=== PATIENT | female | born 1935 | race Caucasian/White ===

== ENCOUNTER 2016-06-10 13:20 | Inpatient (IN) | payer OTHER, MEDICARE ==
[~2016-06-10] VITALS: Ht 147.3 cm; Wt 43.1 kg
[~2016-06-10 13:20] MED LIST: ARICEPT10 M1 PO; BENICAR20 M1 PO; DONEPEZIL HYDROC5 MG PO; LEVOTHYROXINE75 MCG PO; LIPITOR10 M1 PO; NAMENDA XR28 M1 PO
--- NOTE | 2016-06-10 14:08 | ED INFLUENZA/URI COMPLAINT ---
History of Present Illness General Chief Complaint: Fever Stated Complaint: FEVER Source: patient, family, old records Exam Limitations: no limitations Allergies Coded Allergies: strawberry (HIVES 06/10/16) Uncoded Allergies: CHOCOLATE (UNKNOWN 06/10/16) Reconcile Medications Atorvastatin Calcium (Lipitor) 10 MG TABLET 1 TAB PO DAILY CHOLESTEROL ( Reported) Donepezil HCl (Aricept) 10 MG TABLET 1 TAB PO DAILY DEMENTIA (Reported) Levothyroxine Sodium 75 MCG TABLET 1 TAB PO DAILY AC THYROID (Reported) Memantine HCl (Namenda XR) 28 MG CAP.SPR.24 1 CAP PO DAILY DEMENTIA (Reported ) Olmesartan Medoxomil (Benicar) 20 MG TABLET 1 TAB PO DAILY HTN (Reported) Triage Note: BIBA FROM HOME TUESDAY NOT EATING NORMALLY TUESDAY, FEVER 102.5 TUESDAY, FEVER 101 TODAY, FEVER 102 NOT EATING, SLEEPING MORE THAN NORMAL, COUGH STARTED YESTERDAY, NON PRODUCTIVE Triage Nurses Notes Reviewed? yes Onset: Abrupt Duration: week(s): (1), constant Timing: recent history Severity: moderate Severity Numbers: 7 Prior Episodes/Possible Cause: occassional episodes No Modifying Factors: none Associated Symptoms: cough, fever/chills HPI: 80-year-old female presents to emergency room with her daughter for evaluation complaining of fevers as high as 102.5 for the past 4 days generalized malaise, and poor appetite associated with a nonproductive cough since yesterday. The patient denies any sick contacts recent travel. No shortness of breath no chest pain abdominal pain nausea vomiting or diarrhea. She denies any urinary complaints or rashes to her skin there are no modifying factors or associated symptoms otherwise she does not smoke. She did not receive a flu vaccination this year. Last dose of Tylenol was just prior to arrival for her fever. She has not sought care for the symptoms until today. (VIDHI BRIDGES) Vital Signs & Intake/Output Vital Signs & Intake/Output Vital Signs Date Time Temp Pulse Resp B/P Pulse O2 O2 Flow FiO2 Ox Delivery Rate 06/10 1629 103.0 06/10 1629 103.0 06/10 1534 103.0 98 18 132/82 95 Nasal 2.0L Cannula 06/10 1342 100.5 92 20 118/81 90 Past History Medical History Any Pertinent Medical History? see below for history Neurological: Alzheimer's disease EENT: NONE Cardiovascular: hypertension Respiratory: NONE Gastrointestinal: NONE Hepatic: NONE Renal: NONE Musculoskeletal: NONE Psychiatric: NONE Endocrine: hyperthyroidism Blood Disorders: NONE Cancer(s): NONE PSYCHIATRIC LPN/Reproductive: NONE Surgical History Surgical History: non-contributory Psychosocial History Services at Home Nursing What is your primary language Serbian Family History Family History, If Any: Relation not specified for: *No pertinent family history Hx Contributory? No (VIDHI BRIDGES) Review of Systems Review of Systems Constitutional: Reports: see HPI. All Other Systems: Reviewed and Negative Comments Review of systems: See HPI, All other systems negative. Constitutional, no chills fever, no malaise HEENT: No visual changes no sore throat no congestion Cardiovascular: No chest pain , no palpitation Skin, no rashes, no change in skin Respiratory: No dyspnea cough no sputum GI: No nausea no vomiting, no diarrhea : No dysuria No hematuria, no frequency, no discharge Muscle skeletal: No joint pain, no joint swelling, no back pain, Neurologic: No numbness, no headache Psych: No stress Heme/endocrine: No bruising no bleeding Immunology: No lymphadenopathy (VIDHI BRIDGES) Physical Exam Physical Exam General Appearance: well developed/nourished, alert, awake Ears, Nose, Throat: moist mucous membrane, hearing grossly normal Comments: Well-developed well-nourished person in no acute distress HEENT: Normal EENT exam; PERRL, EOMI. HEAD is atraumatic. moist mucous membranes. Neck: Supple, normal range of motion Back: Nontender, no CVA tenderness. Full range of motion Cardiovascular: Regular rate and rhythms no murmurs rubs Respiratory: No respiratory distress. Patient speaking in full complete sentences. Breath sounds clear to auscultation bilaterally: NO W/R/R Abdomen: Soft, nontender nondistended, no appreciable organomegaly. Normal bowel sounds. No rebound/guarding, No appreciable enlargement of the abdominal aorta, No ascites. Extremity: No edema, full range of motion of extremities Neuro: Alert oriented x3, motor sensory normal, There were no obvious focal neurologic abnormalities. Skin: No appreciable rash on exposed skin, skin is warm and dry. Psych: Mood and affect is normal, memory and judgment is normal. Core Measures Severe Sepsis Present: No Septic Shock Present: No (VIDHI BRIDGES) Progress Differential Diagnosis: influenza, otitis, pneumonia, pharyngitis, sinusitis, PNA, BRONCHITIS Diagnostic Imaging: Viewed by Me: Radiology Read. Discussed w/RAD: Radiology Read. CXR Impression: no acute abnormality Initial ED EKG: normal sinus at 90, no acute ST segment changes normal axis Prior EKG: unchanged (10/2014) (VIDHI BRIDGES) Plan of Care: Orders Procedure Date/time Status Heart Healthy Diet 06/11 B Active Admit to inpatient 06/10 1830 Active BLOOD CULTURE 06/10 1755 Active Patient Data 06/10 1723 Active RAPID VIRAL INFLUENZA A 06/10 1405 Complete BLOOD CULTURE 06/10 1405 Active VIRAL CULTURE 06/10 1405 Active XRY-PORTABLE CHEST XRAY 06/10 1357 Active Saline Lock 06/10 1357 Active Pathway - chart 06/10 1357 Active Vital Signs 06/10 1357 Active Telemetry/[employer] Specials 06/10 1357 Active Intake & Output 06/10 1357 Active BLOOD CULTURE 06/10 1357 Active TROPONIN LEVEL 06/10 1357 Complete MAGNESIUM 06/10 1357 Complete LACTIC ACID 06/10 1357 Complete COMPREHENSIVE METABOLIC PANEL 06/10 1357 Complete CBC WITHOUT DIFFERENTIAL 06/10 1357 Complete EKG 06/10 1357 Active Current Medications Sig/Lizzie Start time Last Medication Dose Stop Time Status Admin Atorvastatin Calcium 10 MG DAILY 06/11 1000 UNVr (Lipitor) Donepezil HCl 10 MG DAILY 06/11 1000 UNVr (Aricept) Losartan Potassium 50 MG DAILY 06/11 1000 UNVr (Cozaar) Memantine 28 MG DAILY 06/11 1000 UNVr (Namenda) Levothyroxine Sodium 0.075 MG DAILY AC 06/11 0700 UNVr (Synthroid) Oseltamivir Phosphate 75 MG ONCE ONE 06/10 1715 CAN (Tamiflu 75MG) 06/10 1716 Laboratory Tests 06/10/16 1657: Lactic Acid Cancelled 06/10/16 1429: Anion Gap 10, Estimated GFR 48 L, BUN/Creatinine Ratio 22.7, Glucose 136 H, Lactic Acid 1.7, Calcium 8.1 L, Magnesium 2.0, Total Bilirubin 0.5, AST 50 H, ALT 45, Alkaline Phosphatase 59, Troponin I 0.02, Total Protein 6.0 L, Albumin 3.4 L, Globulin 2.6, Albumin/Globulin Ratio 1.3 06/10/16 1405: CBC w Diff MAN DIFF ORDERED, RBC 4.92, MCV 88.9, MCH 29.4, RDW 13.9, MPV 9.1, Gran % 83.3 H, Lymphocytes % 9.5 L, Monocytes % 7.2, Eosinophils % 0, Basophils % 0 L, Absolute Granulocytes 3.6, Segmented Neutrophils 72, Band Neutrophils 10 H, Absolute Lymphocytes 0.4 L, Lymphocytes 13 L, Monocytes 5, Absolute Monocytes 0.3, Absolute Eosinophils 0, Absolute Basophils 0, Platelet Estimate ADEQUATE, Normocytic RBCs VERIFIED, Normochromic RBCs VERIFIED, PUBS MCHC 33.1, Virus Culture Pending Microbiology 06/10 1458 NASOPHARYN: Influenza Virus A & B Rapid Smear - COMP INFLUENZA TYPE A 06/10 1429 BLOOD: Blood Culture - RECD 06/10 1405 BLOOD: Blood Culture - RECD 06/10 1357 BLOOD: Blood Culture - ORD Labs revealed records reviewed Case discussed with Dr. Jurado who evaluated the patient and agrees with plan. I discussed the patient and her family at length of her lab results can positive fluid dehydration unable to tolerate by mouth and febrile now 103 discussed them that I believe premature discharge would BE medically harmful which they're in agreement with, call was placed to the hospitalist, case discussed with Dr. enrique will admit 1729 dr enrique in dept to eval pt. (VIDHI BRIDGES) Departure Departure Time of Disposition: 1729 Disposition: STILL A PATIENT Condition: Stable Clinical Impression Primary Impression: Influenza Referrals: ROLANDO LUX,SKY Muller (PCP/Family) Departure Forms: Customer Survey General Discharge Information Admission Note Spoke With: PER ENRIQUE M.D Documentation of Exam: Documentation of any treatments & extenuating circumstances including Concerns Regarding Discharge (functional status, medication knowledge or non-compliance, living conditions, etc.) that warrant an admission rather than observation: trend labs, iv fluids, tamiflu, premature discharge would be medically harmful (VIDHI BRIDGES) PA/HARBORMASTER Co-Sign Statement Statement: ED Attending supervision documentation- [X] I saw and evaluated the patient. I have also reviewed all the pertinent lab results and diagnostic results. I agree with the findings and the plan of care as documented in the PA's/HARBORMASTER's documentation. [] I have reviewed the ED Record and agree with the PA's/HARBORMASTER's documentation. [] Additions or exceptions (if any) to the PAs/HARBORMASTER's note and plan are summarized below: [] (SONA LUX,JAIME Coley)
[2016-06-10 14:27] LABS: ABSOLUTE BASOPHIL COUNT 0 /CUMM (0.0-0.2); ABSOLUTE EOSINOPHIL COUNT 0 /CUMM (0.0-0.7); ABSOLUTE GRANULOCYTE CT 3.6 /CUMM (1.4-6.5); ABSOLUTE LYMPH COUNT 0.4 /CUMM (1.2-3.4); ABSOLUTE MONOCYTE COUNT 0.3 /CUMM (0.10-0.60); BASOPHIL % 0 % (0.0-2.0); EOSINOPHIL % 0 % (0-5); GRANULOCYTE % 83.3 % (42.2-75.2); HEMATOCRIT 43.8 % (37-47); MEAN CORPUSCULAR HGB 29.4 PG (27.0-31.0); MEAN CORPUSCULAR HGB CONC 33.1 G/DL (33.0-37.0); MEAN CORPUSCULAR VOLUME 88.9 FL (81.0-99.0); MEAN PLATELET VOLUME 9.1 FL (7.4-10.4); PLATELET COUNT 150 /CUMM (130-400); RBC DISTRIBUTION WIDTH 13.9 % (11.5-14.5); RED BLOOD CELL CT 4.92 /CUMM (4.20-5.40); WHITE BLOOD CELL COUNT 4.3 /CUMM (4.8-10.8)
--- NOTE | 2016-06-10 17:57 | History & Physical ---
BETI LUX,[facility] 06/10/16 0924: General Information and HPI MD Statement: I have seen and personally examined JESSICA HANKS and documented this H&P. The patient is a 80 year old F who presented with a patient stated chief complaint of fever/fatigue. Source of Information: patient Exam Limitations: no limitations History of Present Illness: 80 yo female with a PMH of Alzheimers Dementia for 3 years presents with fever and fatigue. Patient is demented at baseline, is independent with her ADLs and lives alone and ambulates without walking aids. She was cooperative throughout examination. Patients daughter was the main historian who was reliable. Patient started feeling under the weather three days ago (06/07/16) which worsened over the past few days with episodes of fevers starting two days ago with a T-max of 102. Patients fever was responsive to Tylenol and her temp went down to 100 yesterday. Today patients spiked another fever which prompted the daughter to bring her to the ED at [facility]. Patient reports having a loose, non- productive cough, nasal congestion, and upset stomach. Patient has noticeable decrease in energy and activity level compared to baseline. Patient also have decreased appetite associated with decrease PO intake of both solids and liquids and has not taken her home medications for the past two days. Patient denies recent travel and exposure to sick contacts. Patient also denies headache, nausea, vomiting, sore throat, chest pain, shortness of breath, constipation, diarrhea, dysuria, myalgia and arthralgia. Allergies/Medications Allergies: Coded Allergies: strawberry (HIVES 06/10/16) Uncoded Allergies: CHOCOLATE (UNKNOWN 06/10/16) Home Med list Atorvastatin Calcium (Lipitor) 10 MG TABLET 1 TAB PO DAILY CHOLESTEROL ( Reported) Donepezil HCl (Aricept) 10 MG TABLET 1 TAB PO DAILY DEMENTIA (Reported) Levothyroxine Sodium 75 MCG TABLET 1 TAB PO DAILY AC THYROID (Reported) Memantine HCl (Namenda XR) 28 MG CAP.SPR.24 1 CAP PO DAILY DEMENTIA (Reported ) Olmesartan Medoxomil (Benicar) 20 MG TABLET 1 TAB PO DAILY HTN (Reported) Past History Travel History Traveled to [place] past 21 day No Medical History Neurological: Alzheimer's disease EENT: NONE Cardiovascular: hypertension Respiratory: NONE Gastrointestinal: NONE Hepatic: NONE Renal: NONE Musculoskeletal: NONE Psychiatric: NONE Endocrine: hyperthyroidism Blood Disorders: NONE Cancer(s): NONE BREASTER/Reproductive: NONE Surgical History Surgical History: non-contributory Past Family/Social History Family History Relations & Conditions if any Relation not specified for: *No pertinent family history Psychosocial History Who Do You Live With? child Services at Home: Nursing Primary Language: Wallisian Living Will? yes Power of Cna Gna/HCP? yes Functional Ability ADLs Independent: dressing, eating. IADLs Needs Assist: shopping, housework, food prep. Review of Systems Review of Systems Constitutional: Reports: see HPI. Cardiovascular: Denies: chest pain, edema, orthopena. Respiratory: Reports: cough. Denies: hemoptysis, orthopnea. GI: Denies: bloating, constipation, diarrhea, distention. Genitourinary: Denies: hematuria, hesitation, nocturia, pain. Musculoskeletal: Reports: joint pain. Skin: Denies: change in skin color, change in hair/nails, dryness, erythema. Neurological/Psychological: Denies: confusion, depressed, headache. Hematologic/Endocrine: Reports: no symptoms. Immunologic/Allergic: Reports: no symptoms. All Other Systems: Reviewed and Negative Exam & Diagnostic Data Last 24 Hrs of Vital Signs/I&O Vital Signs Date Time Temp Pulse Resp B/P Pulse O2 O2 Flow FiO2 Ox Delivery Rate 06/10 2221 97.5 66 18 135/74 98 Room Air Room Air 06/10 2051 97.3 64 18 138/72 98 Room Air Room Air 06/10 1629 103.0 06/10 1629 103.0 06/10 1534 103.0 98 18 132/82 95 Nasal 2.0L Cannula 06/10 1342 100.5 92 20 118/81 90 Intake & Output 06/10 1600 06/10 0800 06/10 0000 Intake Total Output Total Balance Patient 41.73 kg Weight Physical Exam General Appearance Alert, Oriented X3, Cooperative Skin No Significant Lesion HEENT Atraumatic, EOMI, dried oral mucosa Neck Supple, No JVD Lymphatic Cervical nl Cardiovascular Regular Rate, Normal S1, Normal S2 Lungs Clear to Auscultation, Normal Air Movement Abdomen Normal Bowel Sounds, Soft, No Tenderness Neurological Normal Speech, Normal Tone, Sensation Intact Extremities No Clubbing, No Cyanosis, No Edema, Normal Pulses Vascular Pulses Symmetrical Last 24 Hrs of Labs/Juan R: Laboratory Tests 06/10/16 1657: Lactic Acid Cancelled 06/10/16 1429: Anion Gap 10, Estimated GFR 48 L, BUN/Creatinine Ratio 22.7, Glucose 136 H, Lactic Acid 1.7, Calcium 8.1 L, Magnesium 2.0, Total Bilirubin 0.5, AST 50 H, ALT 45, Alkaline Phosphatase 59, Troponin I 0.02, Total Protein 6.0 L, Albumin 3.4 L, Globulin 2.6, Albumin/Globulin Ratio 1.3 06/10/16 1405: CBC w Diff MAN DIFF ORDERED, RBC 4.92, MCV 88.9, MCH 29.4, RDW 13.9, MPV 9.1, Gran % 83.3 H, Lymphocytes % 9.5 L, Monocytes % 7.2, Eosinophils % 0, Basophils % 0 L, Absolute Granulocytes 3.6, Segmented Neutrophils 72, Band Neutrophils 10 H, Absolute Lymphocytes 0.4 L, Lymphocytes 13 L, Monocytes 5, Absolute Monocytes 0.3, Absolute Eosinophils 0, Absolute Basophils 0, Platelet Estimate ADEQUATE, Normocytic RBCs VERIFIED, Normochromic RBCs VERIFIED, PUBS MCHC 33.1, Virus Culture Pending Microbiology 06/10 1458 NASOPHARYN: Influenza Virus A & B Rapid Smear - COMP INFLUENZA TYPE A 06/10 142 BLOOD: Blood Culture - RECD 06/10 1405 BLOOD: Blood Culture - RECD 06/10 135 BLOOD: Blood Culture - ORD Diagnostic Data CXR Results SERVICE DATE: 06/10/16 EXAM TYPE: RAD - XRY-PORTABLE CHEST XRAY EXAMINATION: XR PORTABLE CHEST CLINICAL INFORMATION: Cough and fever. Evaluate for pneumonia. COMPARISON: None. TECHNIQUE: Portable AP view of the chest was obtained. FINDINGS: The lungs are well-expanded and clear without focal airspace consolidation. No pleural effusions or pneumothoraces are identified. Cardiomediastinal contours are within normal limits. Soft tissues are unremarkable. No acute osseous abnormality is identified. IMPRESSION: No acute cardiopulmonary abnormality. DICTATED BY: ROXANNA LUX,CELSO Assessment/Plan Assessment: Is a 80-year-old lady with a past medical history of dementia of Alzheimer type, hypertension, hypothyroidism Suite 2 day onset of malaise, fevers, generalized body aches, and decrease oral intake. At the ED she is found to be positive for influenza type A. Assessment and plan #Influenza positive for type A influenza is also showing clinical signs of malaise, generalized body ache, fevers and some cough which is consistent with influenza infection. Plan Patient is presenting with symptoms within 48 hours, will start Tamiflu. Droplets precaution Monitor for fevers and administer APAP as needed #Hyponatremia She has mild hyponatremia, seems to be chronic. Patient does appear dry and with reports of decreased oral intake hypovolemia can exacerbate hyponatremia. Plan Hydration of 100 mls/hr normal saline for 1 bag Will monitor BEP #History of hypertension Continue home BP meds #History of dementia of Alzheimer type Continue Namenda and donepezil Hx of hypothyroidism Continue levothyroxine Will obtain TSH As Ranked By This Provider Problem List: 1. Influenza Core Measures/Miscellaneous Acute Coronary Syndrome ACS Diagnosis: No Cerebrovascular Accident CVA/TIA Diagnosis: No Congestive Heart Failure CHF Diagnosis: No Venous Thromboembolism VTE Risk Factors: Acute medical illness, Age > 40 VTE Prophylaxis Ordered Inpt: Pharm- Heparin No Mech VTE prophylaxis d/t: No contraindications No VTE Pharm Prophylaxis d/t: No contraindications VTE Diagnosis: No VTE Type: NONE VTE Confirmed by (Test): NONE Severe Sepsis Severe Sepsis Present: No Septic Shock Septic Shock Present: No Miscellaneous Documentation Attending Case Discussed With: PER RICHEY M.D Primary Care Physician: SKY MARSHALL MD Patient sees these Specialists nonw. Level of Patient Care: General Medicine VIDHI RYAN 06/10/16 0576: Resident Review Statement Resident Statement: examined this patient, discussed with architectural intern, agreed with architectural intern, discussed with family, reviewed EMR data (avail) Other Findings: This is an 80 years old lady with past medical history of dementia, hypothyroidism, hyperlipidemia, hypertension who is presenting with 2 day history of fever and malaise poor appetite and significant decrease in activity from her baseline. This patient has dementia but still leaves in her house with the help of an aid she is able to do all her ADL and also does some house activities cleaning the house but for the past 2 days she has been sleeping most of the time and then spiking fever the highest recorded temperature 102.5. She has significantly reduced oral intake both solids and liquids on the same time span. She has no sick contact she has nausea but no vomiting noted that she has not been able to take her medications for the past 2 days. Vital signs on arrival febrile 100.5 heart rate of 92 respiration of 20 blood pressure 118/81 and saturating 91% on room air. Physical examination: Patient seated comfortably on the bed, she is not in acute distress she is alert and active, did not answer orientation questions, has dry mucous membranes Neck no distended vessels Chest transmitted breath sounds bilaterally no crackles or rhonchi Abdomen normal contour moving with respiration and no palpable mass Extremities no edema no cyanosis no clubbing Lab work: Increased BUN of 25 with creatinine of 1.1, positive for influenza from nasal swab Assessment and plan To 1 years old with underlying dementia presented with 2 day history of fever and lethargy decreased appetite with fever recorded as high as 102.5 and patient found to have positive influenza A test and increased BUN. Problem list Influenza A Dementia Hypertension Hypothyroidism Admit the patient to general medicine floor, vitals every shift, avoid delirium inducing medications, frequent reorientation, Continue with Tamiflu 30 mg twice a day complete a total of 10 doses IV hydration with normal saline at 100 mL/h maximum of 2 bags Continue patient blood pressure medication Benicar 20 mg For dementia will continue with home medication donepezil and Namenda Hypercholesterolemia continue atorvastatin Patient is DNR/DNI and will be on mild/moderate and severe pain pathway ROSSI LUX,PER 06/10/16 1828: Attending MD Review Statement Attending Statement Attending MD Statement: examined this patient, discuss w/resident/PA/SALES REPRESENTATIVE METALS, agreed w/resident/PA/SALES REPRESENTATIVE METALS, discussed with family, reviewed EMR data (avail), discussed with nursing, amended to note Attending Assessment/Plan: Pleasant 80-year-old female with history of hypothyroidism and hypertension brought in by family with complaints of fever going on for the past 2 days. Patient has also been lethargic complaining of malaise and generalized body aches. Has had fever did not beat she was brought to the ER for evaluation. Rapid flu test was done and returned positive. Family reports poor oral intake as well. Laboratory data shows prerenal azotemia. On examination patient appears lethargic portals in acute distress. Lungs are clear bilaterally. Abdomen soft, nontender. She has no peripheral edema. Problems: 1. Influenza A infection. 2. Hypertension 3. Hypothyroidism Recommendations: -Admit to the inpatient general medical service -Continue Tamiflu which was started in the emergency room. -IV hydration until oral intake improves. -Obtain chest x-ray to evaluate for any consolidation. -Repeat serum chemistry in a.m. to ensure that her prerenal azotemia is resolving. -Mobilize patient as tolerated.
--- NOTE | 2016-06-10 22:24 | RADIOLOGY REPORT ---
EXAMINATION: XR PORTABLE CHEST CLINICAL INFORMATION: Cough and fever. Evaluate for pneumonia. COMPARISON: None. TECHNIQUE: Portable AP view of the chest was obtained. FINDINGS: The lungs are well-expanded and clear without focal airspace consolidation. No pleural effusions or pneumothoraces are identified. Cardiomediastinal contours are within normal limits. Soft tissues are unremarkable. No acute osseous abnormality is identified. IMPRESSION: No acute cardiopulmonary abnormality.
[2016-06-10 23:01] VITALS: BP 110/80
[2016-06-11 07:01] VITALS: BP 110/80
[2016-06-11 08:00] LABS: ABSOLUTE BASOPHIL COUNT 0 /CUMM (0.0-0.2); ABSOLUTE EOSINOPHIL COUNT 0 /CUMM (0.0-0.7); ABSOLUTE GRANULOCYTE CT 3.6 /CUMM (1.4-6.5); ABSOLUTE MONOCYTE COUNT 0.4 /CUMM (0.10-0.60); BASOPHIL % 0.2 % (0.0-2.0); EOSINOPHIL % 0.1 % (0-5); GRANULOCYTE % 72.7 % (42.2-75.2); MEAN CORPUSCULAR HGB 29.7 PG (27.0-31.0); MEAN CORPUSCULAR HGB CONC 33.2 G/DL (33.0-37.0); MEAN CORPUSCULAR VOLUME 89.6 FL (81.0-99.0); MEAN PLATELET VOLUME 9.1 FL (7.4-10.4); PLATELET COUNT 135 /CUMM (130-400); RBC DISTRIBUTION WIDTH 13.9 % (11.5-14.5); RED BLOOD CELL CT 4.35 /CUMM (4.20-5.40)
--- NOTE | 2016-06-11 08:13 | PN- Student ---
Objective Objective: Gen: AAO Results Results: Laboratory Tests 06/11/16 0639: Anion Gap 7, Estimated GFR 60, BUN/Creatinine Ratio 24.4, CBC w Diff NO MAN DIFF REQ, RBC 4.35, MCV 89.6, MCH 29.7, RDW 13.9, MPV 9.1, Gran % 72.7, Lymphocytes % 19.8 L, Monocytes % 7.2, Eosinophils % 0.1, Basophils % 0.2, Absolute Granulocytes 3.6, Absolute Lymphocytes 1.0 L, Absolute Monocytes 0.4, Absolute Eosinophils 0, Absolute Basophils 0, PUBS MCHC 33.2 06/10/16 1657: Lactic Acid Cancelled 06/10/16 1429: Anion Gap 10, Estimated GFR 48 L, BUN/Creatinine Ratio 22.7, Glucose 136 H, Lactic Acid 1.7, Calcium 8.1 L, Magnesium 2.0, Total Bilirubin 0.5, AST 50 H, ALT 45, Alkaline Phosphatase 59, Troponin I 0.02, Total Protein 6.0 L, Albumin 3.4 L, Globulin 2.6, Albumin/Globulin Ratio 1.3 06/10/16 1405: CBC w Diff MAN DIFF ORDERED, RBC 4.92, MCV 88.9, MCH 29.4, RDW 13.9, MPV 9.1, Gran % 83.3 H, Lymphocytes % 9.5 L, Monocytes % 7.2, Eosinophils % 0, Basophils % 0 L, Absolute Granulocytes 3.6, Segmented Neutrophils 72, Band Neutrophils 10 H, Absolute Lymphocytes 0.4 L, Lymphocytes 13 L, Monocytes 5, Absolute Monocytes 0.3, Absolute Eosinophils 0, Absolute Basophils 0, Platelet Estimate ADEQUATE, Normocytic RBCs VERIFIED, Normochromic RBCs VERIFIED, PUBS MCHC 33.1, Virus Culture Pending Microbiology 06/10 1458 NASOPHARYN: Influenza Virus A & B Rapid Smear - COMP INFLUENZA TYPE A 06/10 1429 BLOOD: Blood Culture - RECD 06/10 1405 BLOOD: Blood Culture - RECD 06/10 1357 BLOOD: Blood Culture - CAN Cancelled: SPECIMEN NOT RECEIVED IN LABORATORY
[2016-06-11 14:21] VITALS: BP 118/70
--- NOTE | 2016-06-11 15:09 | PN- Housestaff ---
See Addendum Subjective Follow-up For: Influenza Subjective: Patient is seen and examined at bedside. Patient reports feeling much better with an improvement of appetite compared to previous days. He does not endorse any acute complaints of fever, chills, chest pain, palpitation, nausea, vomiting , abdominal pain, increased muscle pains or dysuria. No acute overnight event reported by nursing staff. Review of Systems Constitutional: Reports: no symptoms. Objective Last 24 Hrs of Vital Signs/I&O Vital Signs Date Time Temp Pulse Resp B/P Pulse O2 O2 Flow FiO2 Ox Delivery Rate 06/11 1421 97.7 60 20 118/70 98 06/11 1104 60 108/80 06/11 0800 98 Nasal 2.0L Cannula 06/11 0701 97.5 56 18 110/80 98 Nasal 2.0L Cannula 06/11 0000 Nasal 2.0L Cannula 06/10 2301 97.7 51 18 110/80 98 Nasal Cannula 06/10 2300 Nasal 2.0L Cannula 06/10 2221 97.5 66 18 135/74 98 Room Air Room Air 06/10 2051 97.3 64 18 138/72 98 Room Air Room Air 06/10 1629 103.0 06/10 1629 103.0 06/10 1534 103.0 98 18 132/82 95 Nasal 2.0L Cannula Intake & Output 06/11 1600 06/11 0800 06/11 0000 Intake Total 400 1040 1000 Output Total Balance 400 1040 1000 Intake, IV 800 1000 Intake, Oral 400 240 Number 1 Bowel Movements Output, Urine Patient 43.091 kg Weight Physical Exam General Appearance: Alert, Oriented X3, Cooperative Other Physical Findings: Skin No Significant Lesion HEENT Atraumatic, EOMI, dried oral mucosa Neck Supple, No JVD Lymphatic Cervical nl Cardiovascular Regular Rate, Normal S1, Normal S2 Lungs Clear to Auscultation, Normal Air Movement Abdomen Normal Bowel Sounds, Soft, No Tenderness Neurological Normal Speech, Normal Tone, Sensation Intact Extremities No Clubbing, No Cyanosis, No Edema, Normal Pulses Vascular Pulses Symmetrical Current Medications: Current Medications Sig/Lizzie Start time Last Medication Dose Route Stop Time Status Admin Acetaminophen 650 MG Q6P PRN 06/10 2199 AC PO Acetaminophen 1,000 MG Q6P PRN 06/10 2199 AC IV Acetaminophen 600 MG ONCE ONE 06/10 1615 DC 06/10 IV 06/10 1616 1629 Acetaminophen 0 .STK-MED ONE 06/10 1614 DC IV Acetaminophen 0 .STK-MED ONE 06/10 1555 DC PO Acetaminophen 650 MG ONCE ONE 06/10 1545 DC PO 06/10 1546 Atorvastatin Calcium 10 MG 1700 06/11 1700 AC PO Donepezil HCl 10 MG DAILY 06/11 1000 AC 06/11 PO 1105 Guaifenesin 600 MG Q12 06/10 2230 AC 06/11 PO 1104 Heparin Sodium 0 .STK-MED ONE 06/10 2227 DC (Porcine) .ROUTE Heparin Sodium 5,000 UNIT Q8 06/10 2200 AC 06/11 (Porcine) SC 1347 Levothyroxine Sodium 0.075 MG DAILY AC 06/11 0700 AC 06/11 PO 0544 Losartan Potassium 50 MG DAILY 06/11 1000 AC 06/11 PO 1104 Memantine 10 MG BID 06/11 1000 AC 06/11 PO 1104 Morphine Sulfate 1 MG Q6-PRN PRN 06/10 220 AC IV Oseltamivir Phosphate 30 MG BID 06/11 1000 AC 06/11 PO 06/15 1001 1105 Oseltamivir Phosphate 75 MG ONCE ONE 06/10 1715 CAN PO 06/10 1716 Oseltamivir Phosphate 30 MG ONCE ONE 06/10 1715 DC PO 06/10 1716 Sodium Chloride 1,000 ML Q10H 06/10 2115 AC 06/11 IV 06/11 1714 0544 Sodium Chloride 1,000 ML BOLUS ONE 06/10 1545 DC 06/10 IV 06/10 1644 1629 Last 24 Hrs of Lab/Juan R Results Last 24 Hrs of Labs/Mics: Laboratory Tests 06/11/16 0639: Anion Gap 7, Estimated GFR 60, BUN/Creatinine Ratio 24.4, CBC w Diff NO MAN DIFF REQ, RBC 4.35, MCV 89.6, MCH 29.7, RDW 13.9, MPV 9.1, Gran % 72.7, Lymphocytes % 19.8 L, Monocytes % 7.2, Eosinophils % 0.1, Basophils % 0.2, Absolute Granulocytes 3.6, Absolute Lymphocytes 1.0 L, Absolute Monocytes 0.4, Absolute Eosinophils 0, Absolute Basophils 0, PUBS MCHC 33.2 06/10/16 1657: Lactic Acid Cancelled Assessment/Plan Assessment: This 80-year-old lady with a past medical history of hypertension, upper lipidemia hypothyroidism, dementia of Alzheimer type resents with complaints of a constellation of symptoms including fever, chills, malaise or fatigue and decreased oral intake. At the ED a flu swab was positive for influenza. Assessment and plan #Influenza Patient symptoms of malaise, fatigue joint pain, fever and chills seem to be progressively improving. She is noted to have improved appetite today during breakfast. We'll continue Tamiflu with a 30 mg twice a day dose (renally adjusted). Possibly discharge tomorrow if symptomatic improvement was sent home with 3 day more treatment course for Tamiflu to complete a five-day treatment course. We'll also give Mucinex for symptomatic relief of cough congestion. Acetaminophen as needed for fevers. #History of dementia Continue donepezil and Namenda #History of hypertension Will continue losartan #History of hypothyroidism Will continue levothyroxine 75 g Problem List: 1. Influenza Pain Ratin Pain Location: diffuse Pain Goal: Remain pain free Pain Plan: per pain pathway Tomorrow's Labs & Rationales: bep cbc
[2016-06-11] MEDS ORDERED: TAMIFLU30 M1 PO (16:57)
--- NOTE | 2016-06-11 17:00 | Patient Discharge Instructions ---
Discharge Instructions General Discharge Information You were seen/treated for: FLu Watch for these problems: Fevers, chills, cough, shortness of breath, malaise Special Instructions: Please take all medications as directed. Complete the course of tamiflu. Follow up with PCP in 1 week Diet Continue normal diet: Yes Activity Activity Self Limited: Yes Acute Coronary Syndrome Inclusion Criteria At DC or during hospital stay patient has or had the following: ACS DIAGNOSIS No Discharge Core Measures Meds if any: Prescribed or Continued at Discharge Meds if any: NOT Prescribed or Continued at Discharge Congestive Heart Failure Inclusion Criteria At DC or during hospital stay patient has or had the following: CHF DIAGNOSIS No Discharge Core Measures Meds if any: Prescribed or Continued at Discharge Meds if any: NOT Prescribed or Continued at Discharge Cerebrovascular accident Inclusion Criteria At DC or during hospital stay patient has or had the following: CVA/TIA Diagnosis No Discharge Core Measures Meds if any: Prescribed or Continued at Discharge Meds if any: NOT Prescribed or Continued at Discharge Venous thromboembolism Inclusion Criteria VTE Diagnosis No VTE Type NONE VTE Confirmed by (Test) NONE Discharge Core Measures - Per Current guidelines, there needs to be overlap - treatment for the first 5 days of Warfarin therapy. - If discharged on Warfarin prior to 5 days of - overlap therapy, the patient will need to be - assessed for post discharge needs including - *Post discharge parental anticoagulation - *Warfarin and/or parental anticoagulation education - *Follow up date to check INR post discharge At least 5 days overlap therapy as Inpatient No Meds if any: Prescribed or Continued at Discharge Note: Overlap Therapy is Warfarin and Anticoagulant Meds if any: NOT Prescribed or Continued at Discharge
[2016-06-11 22:31] VITALS: BP 120/70
[2016-06-12 07:04] VITALS: BP 116/76
--- NOTE | 2016-06-12 08:53 | PN- Housestaff ---
NEMESIO CALIX MD 06/12/16 0852: Subjective Follow-up For: Influenza Subjective: Patient seen and examined. She is seen lying upright in bed resting comfortably. Currently she is complaining of a sore throat and mild diffuse body aches and pains with an associated nonproductive cough but otherwise states that she slept well last night and has no further complaints.. Additionally she denies any lightheadedness/dizziness, headache, fever, chills, chest pain, palpitations, shortness of breath, nausea, vomiting, diarrhea. Review of Systems Constitutional: Reports: see HPI. Objective Last 24 Hrs of Vital Signs/I&O Vital Signs Date Time Temp Pulse Resp B/P Pulse O2 O2 Flow FiO2 Ox Delivery Rate 06/12 0911 58 130/82 06/12 0704 97.8 62 18 116/76 94 Room Air 06/12 0000 98 Nasal 1.0L Cannula 06/11 2231 97.4 50 20 120/70 96 Nasal Cannula 06/11 1600 Nasal 1.0L Cannula 06/11 1421 97.7 60 20 118/70 98 06/11 1104 60 108/80 Intake & Output 06/12 1600 06/12 0800 06/12 0000 Intake Total 120 240 Output Total Balance 120 240 Intake, Oral 120 240 Number 1 Bowel Movements Physical Exam General Appearance: Alert, Oriented X3, Cooperative, No Acute Distress Other Physical Findings: General -well-developed, well-nourished elderly woman in no acute distress HEENT - NCAT, PERRL, EOMI, anicteric sclera Cardio - S1, S2 w/o murmurs/gallops/rubs Resp -decreased bibasilar airflow without crackles or wheezing GI - soft, nontender, nondistended, bowel sounds present Neuro - Awake and alert, CN II - XII grossly intact Extremities - no edema, pulses intact Current Medications: Current Medications Sig/Lizzie Start time Last Medication Dose Route Stop Time Status Admin Acetaminophen 650 MG .STK-MED ONE 06/11 2338 DC PO 06/11 2339 Acetaminophen 650 MG Q6P PRN 06/10 2199 AC 06/11 PO 2343 Acetaminophen 1,000 MG Q6P PRN 06/10 2200 AC IV Atorvastatin Calcium 10 MG 1700 06/11 1700 AC 06/11 PO 1737 Donepezil HCl 10 MG DAILY 06/11 1000 AC 06/12 PO 0911 Guaifenesin 600 MG Q12 06/10 2230 AC 06/12 PO 0911 Heparin Sodium 5,000 UNIT Q8 06/10 2200 AC 06/12 (Porcine) SC 0632 Levothyroxine Sodium 0.075 MG DAILY AC 06/11 0700 AC 06/12 PO 0632 Losartan Potassium 50 MG DAILY 06/11 1000 AC 06/12 PO 0911 Memantine 10 MG BID 06/11 1000 AC 06/12 PO 0911 Morphine Sulfate 1 MG Q6-PRN PRN 06/10 2199 AC IV Oseltamivir Phosphate 30 MG BID 06/11 1000 AC 06/12 PO 06/15 1001 0911 Sodium Chloride 1,000 ML Q10H 06/105 DC 06/11 IV 06/11 1714 0544 Assessment/Plan Assessment: Patient reports feeling mildly better than when she was initially admitted. Patient has remained afebrile since admission and without leukocytosis. Patient will be discharged to home today and encouraged to continue supportive treatment such as Tylenol for fever and muscle aches and pains, oral hydration, and a light diet should she become nauseous with instruction to complete her total course of Tamiflu. Problem list: -Influenza -History of Alzheimer's disease -Hypertension -Hypothyroidism Plan: -General medicine -Continue home meds -Tamiflu 30 mg by mouth twice a day for 5 days -Guaifenesin 600 mg by mouth every 12 hours -Tylenol when necessary for fever/pain -Pain pathway -DVT prophylaxis -Discharge to home Problem List: 1. Influenza Pain Ratin Pain Location: None Pain Goal: Remain pain free Pain Plan: Pain Pathway Tomorrow's Labs & Rationales: None LETI HOOKS MD 06/12/16 1046: Attending MD Review Statement Attending Statement Attending MD Statement: examined this patient, discuss w/resident/PA/COREMAKING MACHINE OPERATOR, agreed w/resident/PA/COREMAKING MACHINE OPERATOR, discussed with family, reviewed EMR data (avail), discussed with nursing, discussed with case mgmt, reviewed images Attending Assessment/Plan: Overall patient appears to be doing okay. She is on room air and saturating well. Her daughter says she is weak but improved since admission. She is an 80 -year-old with hypertension who is here with acute influenza. Because of the GFR ranging in the 30-60 range she is on Tamiflu 30 twice a day. She has improved in terms of her fever curve and she stable to go home with outpatient follow-up. They already have an aide and family support and have refused visiting nurse.
[2016-06-12 09:11] VITALS: BP 130/82
--- NOTE | 2016-06-22 06:49 | Discharge Summary ---
Visit Information Visit Dates Admission Date: 06/10/16 Discharge Date: 06/12/16 Hospital Course Course Attending Physician: DIANA RANGEL MD Primary Care Physician: SKY MARSHALL MD Hospital Course: This is an 79 yo lady with PMHX of HTN, HLD, COPD, rheumatoid arthritis on chronic Predinsone presented with dyspnea, productive cough, generalized weakness and malaise, and myalgia. Rapid flu test done at the ED was positive. At the ED, patient required 2 L nasal cannula supplementation to keep her sats above 90%. Vital Signs at admission: Date Time Temp Pulse Resp B/P Pulse O2 O2 Flow FiO2 Ox Delivery Rate 06/10 1629 103.0 06/10 1629 103.0 06/10 1534 103.0 98 18 132/82 95 Nasal 2.0L Cannula 06/10 1342 100.5 92 20 118/81 90 XAM TYPE: RAD - XRY-PORTABLE CHEST XRAY EXAMINATION: XR PORTABLE CHEST CLINICAL INFORMATION: Cough and fever. Evaluate for pneumonia. COMPARISON: None. TECHNIQUE: Portable AP view of the chest was obtained. FINDINGS: The lungs are well-expanded and clear without focal airspace consolidation. No pleural effusions or pneumothoraces are identified. Cardiomediastinal contours are within normal limits. Soft tissues are unremarkable. No acute osseous abnormality is identified. IMPRESSION: No acute cardiopulmonary abnormality. Patient was started on Tamiflu and admitted to general medicine floor for evaluation. Patient was discharged on the third day . The following issues were addressed during hospital stay: #Influenza Patient received renally adjusted Tamiflu dose of 30 mg twice a day. Subsequent days, patient state of health health improved with noticeably less complaints of shortness of breath, improved fever curve, and decrease in generalized weakness weakness. On discharge date, patient was deemed stable and was given a 2 day course of Tamiflu to complete a total 5 days. Allergies: Coded Allergies: strawberry (HIVES 06/15/16) Uncoded Allergies: CHOCOLATE (UNKNOWN 06/10/16) Disposition Summary Disposition Principal Diagnosis: Influenza Additional Diagnosis: Acute hypoxic respiratory failure Discharge Disposition: home health services Discharge Instructions General Discharge Information Code Status: Do Not Resucitate Patient's Diet: Regular diet Patient's Activity: As tolerated Follow-Up Instructions/Appts: Patient is to follow-up with PCP within one week Medications at Discharge Discharge Medications: Continue taking these medications: Olmesartan Medoxomil (Benicar) 20 MG TABLET 1 Tablet ORAL DAILY Comments: Last Taken: 06/12/16 Time: 10am SUBSTITUTION GIVEN WHILE IN HOSPITAL Atorvastatin Calcium (Lipitor) 10 MG TABLET 1 Tablet ORAL DAILY Comments: Last Taken: 06/11/16 Time: 5PM Levothyroxine Sodium (Levothyroxine Sodium) 75 MCG TABLET 1 Tablet ORAL DAILY BEFORE BREAKFAST Comments: Last Taken: 06/12/16 Time: 6am Memantine HCl (Namenda XR) 28 MG CAP.SPR.24 1 Capsule ORAL DAILY Comments: Last Taken: 06/12/16 Time: 10am Donepezil HCl (Aricept) 10 MG TABLET 1 Tablet ORAL DAILY Comments: Last Taken: 06/12/16 Time: 10am Copies To: ROLANDO LUX,SKY Muller Attending MD Review Statement Documenting Attending: DIANA RANGEL MD Other Findings: Agree with the above discharge plan.
== END 2016-06-12 11:15 | disposition home health service (06) | DRG 194 ==
LOC: ENRESERVTM → ENRESERVDT → ERH 13:20 → ERHI 20:00 → 2NA 20:00 → ENPENDDIS 20:00 → 2NA 22:27
PROVIDERS: Emergency Medicine; Preventive Medicine Public Health & General Preventive Medicine; ADMIT Internal Medicine
DX: J10.1 Influenza due to other identified influenza virus with other respiratory manifestations (principal); E87.1 Hypo-osmolality and hyponatremia; G30.9 Alzheimer's disease, unspecified; F02.80 Dementia in other diseases classified elsewhere, unspecified severity, without behavioral disturbance, psychotic disturbance, mood disturbance, and anxiety; I10 Essential (primary) hypertension; E03.9 Hypothyroidism, unspecified
CPT/HCPCS: 2NAP; 36415; 82436; 87040; 87804; 87804-59; 93005; 93010; 96374; J0131; J1644

== ENCOUNTER 2016-06-15 12:26 | Emergency (ER) | payer OTHER, MEDICARE ==
[~2016-06-15] VITALS: Ht 142.2 cm; Wt 45.4 kg
[~2016-06-15 12:26] MED LIST changes: +TAMIFLU30 M1 PO
--- NOTE | 2016-06-15 13:08 | ED DYSPNEA/ASTHMA COMPLAINT ---
History of Present Illness General Chief Complaint: General Adult Stated Complaint: CONGESTION X1 WEEK DX FLU TUESDAY Source: patient, family, old records Exam Limitations: no limitations Allergies Coded Allergies: strawberry (HIVES 06/15/16) Uncoded Allergies: CHOCOLATE (UNKNOWN 06/10/16) Reconcile Medications Atorvastatin Calcium (Lipitor) 10 MG TABLET 1 TAB PO DAILY CHOLESTEROL ( Reported) Donepezil HCl (Aricept) 10 MG TABLET 1 TAB PO DAILY DEMENTIA (Reported) Levothyroxine Sodium 75 MCG TABLET 1 TAB PO DAILY AC THYROID (Reported) Memantine HCl (Namenda XR) 28 MG CAP.SPR.24 1 CAP PO DAILY DEMENTIA (Reported ) Olmesartan Medoxomil (Benicar) 20 MG TABLET 1 TAB PO DAILY HTN (Reported) Triage Note: TRIAGE: PT TO ER WITH DAUGHTER C/C DIAGNOSED WITH FLU LAST TUESDAY. SEEN BY CASE MANAGEMENT NURSE TODAY AT HOME BECAUSE DAUGHTER WAS WORRIED BECAUSE SHE HAS NOT BEEN EATING OR DRINKING. WAS ADVISED TO COME TO ER FOR RE-EVAL AND ?PNEUMONIA. PT WITH PRODUCTIVE SOUNDING COUGH AT TRIAGE BUT DAUGHTER STATES SHE HAS NOT BEEN EXPECTORATING. REPORTS DECREASED URINARY OUTPUT, HAS ONLY VOIDED 2 X SINCE 08:00. Triage Nurses Notes Reviewed? yes HPI: Patient is an 80 year old female presents complaining of cough, significantly decreased food and fluid intake for the past 3 days. Patient was diagnosed with influenza last week, was admitted from to Tuesday. Cough continues. Increasing generalized weakness and malaise. Pain is 0/10. Continues with cough. Denies fevers since discharge from the hospital. Patient is on her last day of Tamiflu (OLIVIER PA) Vital Signs & Intake/Output Vital Signs & Intake/Output Vital Signs Date Time Temp Pulse Resp B/P Pulse O2 O2 Flow FiO2 Ox Delivery Rate 06/15 1622 98.7 94 16 165/90 95 Room Air 06/15 1421 97.7 64 18 165/84 98 Room Air 06/15 1320 Room Air 06/15 1231 98.3 73 20 162/86 92 Room Air Past History Travel History Traveled to [place] past 21 day No Medical History Any Pertinent Medical History? see below for history Neurological: Alzheimer's disease EENT: NONE Cardiovascular: hypertension Respiratory: INFLUENZA Gastrointestinal: NONE Hepatic: NONE Renal: NONE Musculoskeletal: NONE Psychiatric: NONE Endocrine: hyperthyroidism Blood Disorders: NONE Cancer(s): NONE BASIN FINISH OPERATOR TIG WELDER/Reproductive: NONE History of MRSA: No History of VRE: No History of CDIFF: No Surgical History Surgical History: non-contributory Psychosocial History Services at Home Nursing What is your primary language Tajik Tobacco Use: Quit >30 days ago ETOH Use: denies use Illicit Drug Use: denies illicit drug use Family History Family History, If Any: Relation not specified for: *No pertinent family history Hx Contributory? No (OLIVIER PA) Review of Systems Review of Systems Constitutional: Reports: malaise, weakness. Denies: chills, fever. EENTM: Reports: no symptoms. Respiratory: Reports: cough. Denies: short of breath. Cardiovascular: Denies: chest pain. GI: Denies: abdominal pain, nausea, vomiting. Genitourinary: Reports: no symptoms. Musculoskeletal: Denies: back pain, neck pain. Skin: Reports: no symptoms. Neurological/Psychological: Reports: no symptoms. Hematologic/Endocrine: Reports: no symptoms. Immunologic/Allergic: Reports: no symptoms. (OLIVIER PA) Physical Exam Physical Exam General Appearance: alert, awake Head: atraumatic, normal appearance Eyes: Bilateral: normal appearance, PERRL, EOMI. Ears, Nose, Throat: normal pharynx, normal ENT inspection, hearing grossly normal Neck: normal inspection, supple, full range of motion Respiratory: normal breath sounds, chest non-tender, no respiratory distress, lungs clear Cardiovascular: regular rate/rhythm Gastrointestinal: soft, non-tender Extremities: normal inspection, normal capillary refill, normal range of motion Neurologic/Psych: awake, alert Skin: normal color, warm/dry Core Measures ACS in differential dx? Yes ASA ordered for poss ACS? No-ACS ruled out Severe Sepsis Present: No Septic Shock Present: No (OLIVIER PA) Progress Differential Diagnosis: bronchitis, pneumonia, influenza, electrolyte abnormalities, dehydration Diagnostic Imaging: Viewed by Me: Radiology Read. Discussed w/RAD: Radiology Read. Radiology Impression: PATIENT: JESSICA HANKS PRESENT AGE: 80 PATIENT ACCOUNT NO: [id number] : 33 LOCATION: [facility] ORDERING PHYSICIAN: OLIVIER ISAACS SERVICE DATE: 06/15/16 EXAM TYPE: RAD - XRY-PORTABLE CHEST XRAY EXAMINATION: XR PORTABLE CHEST CLINICAL INFORMATION: Increasing weakness and cough. Recent influenza diagnosis. Rule out pneumonia. COMPARISON: 06/10/2016 TECHNIQUE: AP portable upright view of the chest FINDINGS : There is a 0.8 cm nodule in the left midlung overlying the left eighth rib posteriorly and fourth rib anteriorly. Lungs are otherwise clear. No consolidation, pneumothorax, or pleural effusion. Calcific atherosclerosis is present in the thoracic aorta. Cardiac and mediastinal contours are normal. Pulmonary vasculature is unremarkable. Osseous structures are unremarkable. IMPRESSION: 1. No evidence of pneumonia. 2. A 0.8 cm nodule in the left midlung. Follow-up chest CT with contrast is advised for further evaluation. This result was discussed by telephone with Olivier Landeros PA-C at 1:52 PM on 2016. DICTATED BY: JF PÉREZ MD DATE/TIME DICTATED:06/15/161340 MEDICAL OFFICER PSYCHIATRY:CHRIS DATE/TIME TRANSCRIBED:06/15/161340 CONFIDENTIAL, DO NOT COPY WITHOUT APPROPRIATE AUTHORIZATION. <Electronically signed in Other Vendor System> SIGNED BY: JF PÉREZ MD 06/15/16 1356 Initial ED EKG: sinus arrhythmia rate controlled, no acute ST/T-wave abnormalities. No significant changes from previous EKG Prior EKG: unchanged (OLIVIER PA) Plan of Care: Orders Procedure Date/time Status LACTIC ACID 06/15 1625 Active BLOOD CULTURE 06/15 1325 Active LACTIC ACID 06/15 1325 Complete COMPREHENSIVE METABOLIC PANEL 06/15 1325 Complete CBC WITHOUT DIFFERENTIAL 06/15 1325 Complete EKG 06/15 1325 Active Laboratory Tests 06/15/16 1338: Anion Gap 11, Estimated GFR > 60, BUN/Creatinine Ratio 26.3 H, Glucose 85, Lactic Acid 1.1, Calcium 8.6, Total Bilirubin 0.7, AST 37 H, ALT 38, Alkaline Phosphatase 61, Total Protein 5.5 L, Albumin 2.9 L, Globulin 2.6, Albumin/ Globulin Ratio 1.1, CBC w Diff NO MAN DIFF REQ, RBC 4.43, MCV 87.6, MCH 29.8, RDW 13.5, MPV 7.8, Gran % 72.7, Lymphocytes % 17.4 L, Monocytes % 8.0, Eosinophils % 1.5, Basophils % 0.4, Absolute Granulocytes 4.3, Absolute Lymphocytes 1.0 L, Absolute Monocytes 0.5, Absolute Eosinophils 0.1, Absolute Basophils 0, PUBS MCHC 34.0 Microbiology 06/15 1350 BLOOD: Blood Culture - RECD 06/15 1338 BLOOD: Blood Culture - RECD Results of labs and chest x-ray discussed with patient and her daughter. Patient reports no significant improvement after 1 L NS. No significant change in BUN/Cr or electrolytes from previous admission. Discussed with and seen by Dr. Jurado. Patient ambulated well with use of walker in the ED. Discussed with case management Vandana. Patient seen by case management. Will increase home nursing services. Patient nontoxic appearing, ambulating well. Appears stable for discharge. 06/15/2016 4:19:46 PM: Discussed with patient's daughter presence of lung nodule on the chest x-ray and importance of close outpatient follow-up. (OLIVIER PA) Departure Departure Time of Disposition: 1611 Disposition: HOME OR SELF CARE Condition: Stable Clinical Impression Primary Impression: Generalized weakness Referrals: SKY PEOPLES MD (PCP/Family) Additional Instructions: Follow up with Dr. Peoples within 1 week for further evaluation. The emergency department lining caser is contacting your visiting nursing service to increase your home services. Return to the ER if chest pain, breathing worsening, fevers returning, or worsening of symptoms. Departure Forms: Customer Survey General Discharge Information (OLIVIER PA) PA/AIRFLIGHT ATTENDANTS SUPERVISOR Co-Sign Statement Statement: ED Attending supervision documentation- [x] I saw and evaluated the patient. I have also reviewed all the pertinent lab results and diagnostic results. I agree with the findings and the plan of care as documented in the PA's/AIRFLIGHT ATTENDANTS SUPERVISOR's documentation. [] I have reviewed the ED Record and agree with the PA's/AIRFLIGHT ATTENDANTS SUPERVISOR's documentation. [] Additions or exceptions (if any) to the PAs/AIRFLIGHT ATTENDANTS SUPERVISOR's note and plan are summarized below: [] (SONA LUX,JAIME Coley) Critical Care Note Critical Care Note Critical Care Time: non-applicable (OLIVIER PA)
[2016-06-15 13:55] LABS: ABSOLUTE BASOPHIL COUNT 0 /CUMM (0.0-0.2); ABSOLUTE EOSINOPHIL COUNT 0.1 /CUMM (0.0-0.7); ABSOLUTE MONOCYTE COUNT 0.5 /CUMM (0.10-0.60); RED BLOOD CELL CT 4.43 /CUMM (4.20-5.40)
--- NOTE | 2016-06-15 13:56 | RADIOLOGY REPORT ---
EXAMINATION: XR PORTABLE CHEST CLINICAL INFORMATION: Increasing weakness and cough. Recent influenza diagnosis. Rule out pneumonia. COMPARISON: 06/10/2016 TECHNIQUE: AP portable upright view of the chest FINDINGS: There is a 0.8 cm nodule in the left midlung overlying the left eighth rib posteriorly and fourth rib anteriorly. Lungs are otherwise clear. No consolidation, pneumothorax, or pleural effusion. Calcific atherosclerosis is present in the thoracic aorta. Cardiac and mediastinal contours are normal. Pulmonary vasculature is unremarkable. Osseous structures are unremarkable. IMPRESSION: 1. No evidence of pneumonia. 2. A 0.8 cm nodule in the left midlung. Follow-up chest CT with contrast is advised for further evaluation. This result was discussed by telephone with Olivier Landeros PA-C at 1:52 PM on 06/15/2016.
[2016-06-15 13:59] LABS: ABSOLUTE GRANULOCYTE CT 4.3 /CUMM (1.4-6.5); BASOPHIL % 0.4 % (0.0-2.0); EOSINOPHIL % 1.5 % (0-5); GRANULOCYTE % 72.7 % (42.2-75.2); HEMATOCRIT 38.8 % (37-47); MEAN CORPUSCULAR HGB 29.8 PG (27.0-31.0); MEAN CORPUSCULAR VOLUME 87.6 FL (81.0-99.0); MEAN PLATELET VOLUME 7.8 FL (7.4-10.4); RBC DISTRIBUTION WIDTH 13.5 % (11.5-14.5)
[2016-06-15 14:00] LABS: PLATELET COUNT 341 /CUMM (130-400)
[2016-06-15 16:22] VITALS: BP 165/90
== END 2016-06-15 16:23 ==
LOC: ERH 12:26
PROVIDERS: Physician Assistant
DX: R53.1 Weakness (principal); R91.1 Solitary pulmonary nodule
CPT/HCPCS: 87040; 93005; 93010; 96360